=== PATIENT | male | born 1980 | race Hispanic/Latino ===

== ENCOUNTER 2022-11-15 20:08 | Observation (INO) | payer SELFPAY ==
[2022-11-15 21:02] VITALS: BP 138/100
[2022-11-15 21:26] LABS: BASO% 0.2 % (0-3); EOS% 7.2 % (0-8); HEMATOCRIT 41.8 % (39.0-50.0); HEMOGLOBIN 15.3 g/dl (14.0-18.0); IMMATURE GRANULOCYTES 0.1 % (0.0-5.0); LYMPH% 49.1 % (15-41); MEAN CELL VOLUME 84.4 fL CALC (80.0-100.0); MEAN CORPUSCULAR HGB 30.9 pG CALC (26.0-32.0); MEAN CORPUSCULAR HGB CONC 36.6 g/dL CAL (32.0-36.0); MONO% 4.1 % (2-13); NEUT# 3.46 thou/uL (1.82-7.42); NEUT% 39.3 % (42-76); RED BLOOD COUNT 4.95 mill/uL (4.70-6.10); RED CELL DISTRI WIDTH 12.5 % (11.5-15.5)
[2022-11-15 21:35] VITALS: BP 137/81
[2022-11-15 21:39] LABS: ALBUMIN 4.7 g/dL (3.2-5.0); ALKALINE PHOSPHATASE 130 u/l (38-126); AMYLASE 95 u/l (30-110); ANION GAP 17 (6-22 (CALC)); BILIRUBIN, TOTAL 0.5 mg/dL (0.0-1.4); BUN 8 mg/dL (9-20); BUN/CREATININE RATIO 9 (12-20 (CALC)); CARBON DIOXIDE 23 mmol/l (22-30); CHLORIDE 106 mmol/l (95-108); CREATININE 0.9 mg/dL (0.7-1.3); GFR FOR AFR.AMER. > 60 ML/MIN (>=60 (CALC)); GFR OTHER RACES > 60 ML/MIN (>=60 (CALC)); SGOT/AST 60 u/l (17-59); SODIUM 141 mmol/l (137-146); TOTAL PROTEIN 8.1 g/dL (6.3-8.2)
[2022-11-15 21:45] VITALS: BP 132/89
[2022-11-15 22:00] VITALS: BP 137/85
[2022-11-15 22:12] LABS: URINE BILIRUBIN - DIPSTICK NEGATIVE (NEGATIVE); URINE BLOOD DIPSTICK TRACE-INTACT (NEGATIVE); URINE GLUCOSE - DIPSTICK NEGATIVE (NEGATIVE); URINE KETONE NEGATIVE (NEGATIVE); URINE LEUK ESTERASE NEGATIVE (NEGATIVE); URINE PROTEIN - DIPSTICK NEGATIVE (NEG-TRACE); URINE SPECIFIC GRAVITY <=1.005; URINE UROBILINOGEN - DIPSTICK 0.2 E.U./dL (0.2)
[2022-11-15 22:14] LABS: URINE COLOR STRAW; URINE NITRITE - DIPSTICK NEGATIVE (Negative)
[2022-11-15 23:45] VITALS: BP 127/85
[2022-11-16] VITALS: BP 133/82
[2022-11-16 00:58] VITALS: BP 140/86
[2022-11-16] MEDS ORDERED: TYLENOL325 M2 (02:05)
[2022-11-16 03:50] VITALS: BP 123/71
[2022-11-16 04:00] VITALS: BP 123/71
[2022-11-16 06:51] VITALS: BP 123/71
[2022-11-16 10:46] VITALS: BP 123/71
[2022-11-16] MEDS ORDERED: TAM75CAP PO (11:04)
[2022-11-16] MEDS ORDERED: MEDDOSEPAK PO (11:05)
== END 2022-11-16 13:15 | disposition home or self-care (01) | DRG 313 ==
LOC: ED 20:08 → ED-I 23:37 → ED 11-16 00:10 → MS2 11-16 00:11
PROVIDERS: Emergency Medicine; ADMIT Internal Medicine; ATTEND Internal Medicine
DX: R07.89 Other chest pain (principal); F10.229 Alcohol dependence with intoxication, unspecified; J10.1 Influenza due to other identified influenza virus with other respiratory manifestations; F17.200 Nicotine dependence, unspecified, uncomplicated; Y90.8 Blood alcohol level of 240 mg/100 ml or more; Z20.822 Contact with and (suspected) exposure to COVID-19
CPT/HCPCS: G0378; J2060; S0164